=== PATIENT | male | born 1990 | race Asian ===

== ENCOUNTER 2017-05-18 17:55 | Emergency (ER) | payer OTHER ==
[~2017-05-18] VITALS: Ht 172.7 cm; Wt 64.9 kg
[2017-05-18 19:38] LABS: CALCIUM 8.7 mg/dL (8.5-10.1); CARBON DIOXIDE 25.2 mmol/L (21-32); CHLORIDE SERUM 102 mmol/L (98-107); GFR1 > 60 mL/min; GLUCOSE SERUM 85 mg/dL (74-106); POTASSIUM SERUM 3.6 mmol/L (3.5-5.1); SODIUM SERUM 138 mmol/L (136-145)
[2017-05-18 19:45] LABS: ALBUMIN 4.2 g/dL (3.4-5.0); ALKALINE PHOSPHATASE 50 U/L (46-116); ALT/SGPT 16 U/L (16-63); AST/SGOT 14 U/L (15-37); BILIRUBIN TOTAL 1.28 mg/dL (0.20-1.00); TOTAL PROTEIN, SERUM 7.4 g/dL (6.4-8.2)
[2017-05-18 19:48] LABS: BASOPHIL % 0.3 % (0-2); PLATELET COUNT 266 x10^3mcL (130-400); RED CELL DISTRIBUTION WIDTH 13.4 % (11.5-14.5)
[2017-05-18 19:58] LABS: UA SPECIFIC GRAVITY >=1.030 (1.005-1.035); microscopic required? YES; urine erythrocyte NEGATIVE (NEGATIVE)
[2017-05-18 20:06] LABS: AMPHETAMINE QUAL UR NONE DETECTED (NEG <=1000)
[2017-05-18 21:38] VITALS: BP 128/76
== END 2017-05-18 21:38 | disposition home or self-care (01) ==
LOC: ED 17:55
PROVIDERS: Specialist
DX: Z00.00 Encounter for general adult medical examination without abnormal findings (principal); F41.9 Anxiety disorder, unspecified; F32.9 Major depressive disorder, single episode, unspecified; K62.89 Other specified diseases of anus and rectum
CPT/HCPCS: 36415; 83880; G0480